=== PATIENT | male | born 1940 | race Caucasian/White ===

== ENCOUNTER → 2016-07-11 | Day surgery (SDC) | payer MEDICARE, BC ==
[~2016-07-11] VITALS: Ht 175.3 cm; Wt 83.5 kg
[~2016-07-11] MED LIST: ALEV220C2 PO; ASPI1TAB PO; BUPIVACAINE/EPIN 0.25% 30 ML VIAL As Ordered ONE; BUPIVACAINE/EPIN 0.25% 30 ML VIAL XX ONE; GLYCOPYRROLATE INJ 0.2 MG/ML 2 ML VIAL As Ordered ONE; ISTA0.5S OP; LABETALOL HCL 100 MG/20 ML VIAL IV PRN; LATA5OPD OD; LIDOCAINE 2% INJ 100 MG/5 ML SDV (FOR ANES.) As Ordered ONE; LISI10TA4 PO; LR 1,000 ML IV SCH; MIDAZOLAM INJ 2 MG/2 ML VIAL (J2250) As Ordered ONE; NEOSTIGMINE 1MG/ML 5 ML SYRINGE (J2710) As Ordered ONE; NORCO, ANEXSIA 5/325MG TABLET (HYDROcodone/ACETAMINOPHEN) PO PRN; ONDANSETRON 4MG/2ML VIAL (J2405) As Ordered ONE; ONDANSETRON 4MG/2ML VIAL (J2405) IV PRN; PERCOCET 5MG/325MG TAB PO PRN; PROPOFOL 200 MG/20 ML VIAL As Ordered ONE; RANI300T PO; ROCURONIUM BROMIDE 50 MG/5 ML VIAL As Ordered ONE; VITA500046 PO; dexameTHASONE 4 MG/ML 1ML VIAL (J1100) As Ordered ONE; fentaNYL 100 MCG/2 ML INJECTION (J3010) IV PRN; fentaNYL 250 MCG/5 ML INJECTION (J3010) As Ordered ONE; hydrALAZINE INJ 20 MG/ML VIAL As Ordered ONE
[2016-07-11] MEDS: hydrALAZINE INJ 20 MG/ML VIAL IV PRN ×3 (16:10→16:22)
[2016-07-11 16:22] VITALS: BP 176/86
--- NOTE | 2016-07-11 17:06 | ECGEPIP ---
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 No prior ECG available for comparison at the time of interpretation. Electronically Signed On 07-11-2016 16:49:37 EST by Willis Valenzuela
--- NOTE | 2016-07-11 17:06 | ECGEPIP ---
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 No significant change compared with 07/11/2016 at 1348 hrs. Electronically Signed On 07-11-2016 16:57:15 EST by Willis Valenzuela
[2016-07-11 20:15] VITALS: BP 140/80
--- NOTE | 2016-07-12 10:04 | RO ---
DATE OF PROCEDURE: 07/11/2016 PREOPERATIVE DIAGNOSIS: Right inguinal hernia. POSTOPERATIVE DIAGNOSIS: Incarcerated right inguinal hernia. OPERATIVE PROCEDURE: SURGEON: Sebastian Hall DO WEALTH MANAGEMENT CONSULTANT: Dr. Case ANESTHESIA: General: ESTIMATED BLOOD LOSS: 5 mL. COMPLICATIONS: None. INDICATIONS FOR PROCEDURE: The patient is a 76-year-old male who has had a right inguinal hernia for many years. It is starting to get bigger and cause him more pain. It pops out every time he stands up, but it reduces down to the point where it does not bother him when he lays down. Recommendation was to proceed with laparoscopic right, possible open right inguinal hernia repair. Risks and benefits of the procedure not limited but including bleeding, infection, hernia recurrence, hernia formation, damage to surrounding structures, and need for further surgery were discussed in detail with the patient. Informed consent was obtained and the procedure was planned. DESCRIPTION OF PROCEDURE: The patient brought back to operating room 8. After sufficient sedation, the abdomen was sterilely prepped and draped. A Hamilton catheter was placed. Next a time-out was done to confirm proper patient and proper procedure. Following that a 2 cm incision was made infraumbilically. The incision was carried down to the level of fascia. Fascia was opened just to the left of midline. Preperitoneal space was then entered and balloon dissector was placed. After balloon dissection, balloon dissector was removed and replaced with a 10 mm balloon port. Next, two 5 mm ports were placed in the midline in between the pubic symphysis and the umbilicus. Using blunt dissection, the hernia sac on the right was carefully identified along with the cord structures. It was encircled. The hernia sac was then carefully reduced; was very long and narrow hernia sac. Once it had been all completely reduced, it was dissected free both posteriorly and laterally. Once this was completed, a Bard 3-D Max large mesh was rolled up and placed inside the preperitoneal space. This was unrolled laterally, tacked to the midline and to the pubic symphysis using a Pro tacker. Once the mesh was laid flat it was held in place while the preperitoneal space was desufflated. Next, the ports were removed. Fascia at the umbilical port site was closed with #0 Vicryl [id number] suture. Skin incision closed for #4-0 Vicryl subcuticular sutures. The abdomen was cleaned and dried. Steri-Strips, 4x4 and tape were applied thus ending procedure.
== END | disposition home or self-care (01) ==
LOC: M SDC 13:12
PROVIDERS: ATTEND Surgery
DX: K40.30 Unilateral inguinal hernia, with obstruction, without gangrene, not specified as recurrent (principal); I10 Essential (primary) hypertension; K21.9 Gastro-esophageal reflux disease without esophagitis; M54.5 Low back pain; Z79.899 Other long term (current) drug therapy; Z87.891 Personal history of nicotine dependence
CPT/HCPCS: 49650; 93005; C1781; J0690; J1100; J2250; J2405; J2710; J3010

== ENCOUNTER → 2017-01-29 | Outpatient (CLI) | payer MEDICARE, BC ==
[~2017-01-29] MED LIST changes: -BUPIVACAINE/EPIN 0.25% 30 ML VIAL As Ordered ONE; -BUPIVACAINE/EPIN 0.25% 30 ML VIAL XX ONE; -GLYCOPYRROLATE INJ 0.2 MG/ML 2 ML VIAL As Ordered ONE; -LABETALOL HCL 100 MG/20 ML VIAL IV PRN; -LIDOCAINE 2% INJ 100 MG/5 ML SDV (FOR ANES.) As Ordered ONE; -LR 1,000 ML IV SCH; -MIDAZOLAM INJ 2 MG/2 ML VIAL (J2250) As Ordered ONE; -NEOSTIGMINE 1MG/ML 5 ML SYRINGE (J2710) As Ordered ONE; -NORCO, ANEXSIA 5/325MG TABLET (HYDROcodone/ACETAMINOPHEN) PO PRN; -ONDANSETRON 4MG/2ML VIAL (J2405) As Ordered ONE; -ONDANSETRON 4MG/2ML VIAL (J2405) IV PRN; -PERCOCET 5MG/325MG TAB PO PRN; -PROPOFOL 200 MG/20 ML VIAL As Ordered ONE; -ROCURONIUM BROMIDE 50 MG/5 ML VIAL As Ordered ONE; -dexameTHASONE 4 MG/ML 1ML VIAL (J1100) As Ordered ONE; -fentaNYL 100 MCG/2 ML INJECTION (J3010) IV PRN; -fentaNYL 250 MCG/5 ML INJECTION (J3010) As Ordered ONE; -hydrALAZINE INJ 20 MG/ML VIAL As Ordered ONE
[2017-01-29 14:16] LABS: BASO % 0.3 % (0.0-1.0); LARGE UNSTAINED CELL # 0.1 K/mm3 (0.0-0.4); LARGE UNSTAINED CELL % 2.1 % (0.0-4.0); LYMPH # 1.1 K/mm3 (1.5-4.5); MEAN CORPUSCULAR HEMOGLOBIN 28.3 pg (27.0-33.0); MEAN CORPUSCULAR VOLUME 85.7 fl (80.0-96.0); MONO # 0.4 K/mm3 (0.0-0.8); MONO % 8.6 % (0.0-5.0); NEUTROPHILS # 3.2 K/mm3 (1.8-7.7); PLATELET COUNT, AUTOMATED 223 k/mm3 (150-450); WHITE BLOOD COUNT 4.7 K/mm3 (4.0-10.0)
[2017-01-29 14:33] LABS: ALBUMIN/GLOBULIN RATIO 1.74 (1.00-1.93); ALKALINE PHOSPHATASE 47 U/L (45-117); ALT/SGPT 14 U/L (12-78); ANION GAP 10 MEQ/L (8-16); AST/SGOT 10 U/L (15-37); BLOOD UREA NITROGEN 16 MG/DL (7-18); CALCIUM LEVEL 8.9 MG/DL (8.8-10.2); CARBON DIOXIDE LEVEL 27 MEQ/L (21-32); CHLORIDE LEVEL 107 MEQ/L (98-107); CHOLESTEROL LEVEL 228 MG/DL (<200); CREATININE FOR GFR 0.97 MG/DL (0.70-1.30); GLOMERULAR FILTRATION RATE > 60.0 (>42); GLUCOSE, FASTING 108 MG/DL (83-110); POTASSIUM SERUM 4.8 MEQ/L (3.5-5.1); SODIUM LEVEL 144 MEQ/L (136-145); TOTAL PROTEIN 6.3 GM/DL (6.4-8.2); TRIGLYCERIDES LEVEL 107 MG/DL (<150)
[2017-01-29 15:17] LABS: ERYTHROCYTE SEDIMENTATION RATE 7 mm/hr (0-20)
[2017-01-31 00:08] LABS: Lyme Disease IgG/IgM Antibodie <0.91 ISR (0.00-0.90); Lyme Disease IgM Ab Quantitati <0.80 index (0.00-0.79)
== END ==
LOC: M WUC 10:01
PROVIDERS: ATTEND Emergency Medicine
DX: M25.561 Pain in right knee (principal); R73.01 Impaired fasting glucose; E55.9 Vitamin D deficiency, unspecified; I10 Essential (primary) hypertension; N40.1 Benign prostatic hyperplasia with lower urinary tract symptoms

== ENCOUNTER → 2017-02-04 | Outpatient (CLI) | payer MEDICARE, BC ==
[2017-02-04 14:25] LABS: VITAMIN B12 LEVEL 230 PG/ML
[2017-02-04 14:38] LABS: ALBUMIN 3.9 GM/DL (3.2-5.2); ALKALINE PHOSPHATASE 53 U/L (45-117); ALT/SGPT 15 U/L (12-78); ANION GAP 7 MEQ/L (8-16); AST/SGOT 9 U/L (15-37); BILIRUBIN,TOTAL 0.8 MG/DL (0.2-1.0); BLOOD UREA NITROGEN 14 MG/DL (7-18); CALCIUM LEVEL 9.1 MG/DL (8.8-10.2); CARBON DIOXIDE LEVEL 29 MEQ/L (21-32); CHLORIDE LEVEL 107 MEQ/L (98-107); CREATININE FOR GFR 0.92 MG/DL (0.70-1.30); GLOMERULAR FILTRATION RATE > 60.0 (>42); GLUCOSE, FASTING 115 MG/DL (83-110); POTASSIUM SERUM 4.3 MEQ/L (3.5-5.1); SODIUM LEVEL 143 MEQ/L (136-145); TOTAL PROTEIN 6.5 GM/DL (6.4-8.2)
[2017-02-04 14:40] LABS: FOLATE 8.1 NG/ML
[2017-02-04 18:21] LABS: BASO % 0.2 % (0.0-1.0); EOS % 0.4 % (0.0-3.0); LARGE UNSTAINED CELL # 0.1 K/mm3 (0.0-0.4); LARGE UNSTAINED CELL % 2.1 % (0.0-4.0); LYMPH # 0.7 K/mm3 (1.5-4.5); LYMPH % 16.1 % (24.0-44.0); MEAN CORPUSCULAR HEMOGLOBIN 29.2 pg (27.0-33.0); MEAN CORPUSCULAR HGB CONC 34.1 g/dl (32.0-36.5); MEAN CORPUSCULAR VOLUME 85.6 fl (80.0-96.0); MONO # 0.3 K/mm3 (0.0-0.8); MONO % 7.4 % (0.0-5.0); NEUTROPHILS # 3.3 K/mm3 (1.8-7.7); NEUTROPHILS % 73.8 % (36.0-66.0); PLATELET COUNT, AUTOMATED 234 k/mm3 (150-450); RED CELL DISTRIBUTION WIDTH 13.9 % (11.5-14.5); WHITE BLOOD COUNT 4.5 K/mm3 (4.0-10.0)
[2017-02-04 20:15] LABS: ERYTHROCYTE SEDIMENTATION RATE 8 mm/hr (0-20)
[2017-02-05 13:39] LABS: ALBUMIN 4.34 GM/DL (3.29-5.55); ALBUMIN % 66.8 % (55.8-66.1); GAMMA GLOBULIN % 9.4 % (11.1-18.8)
[2017-02-10 00:06] LABS: VITAMIN E LEVEL 11.9 mg/L (5.3-17.5)
== END ==
LOC: M WUC 10:22
PROVIDERS: ATTEND Psychiatry & Neurology Neurology
DX: G62.9 Polyneuropathy, unspecified (principal); R27.9 Unspecified lack of coordination; Z79.899 Other long term (current) drug therapy

== ENCOUNTER → 2017-09-18 | Outpatient (REF) | payer MEDICARE, BC | LOC: M LAB REF 12:17 | DX: R31.9 Hematuria, unspecified (principal) | CPT/HCPCS: 87186 ==

== ENCOUNTER → 2017-09-28 | Outpatient (REF) | payer MEDICARE, BC ==
[2017-09-28 18:55] LABS: APPEARANCE, URINE CLEAR (CLEAR); BACTERIA, URINE AUTO NEGATIVE (NEGATIVE); BILIRUBIN, URINE AUTO NEGATIVE (NEGATIVE); BLOOD, URINE BLOOD NEGATIVE (NEGATIVE); COLOR, URINE YELLOW (YELLOW); GLUCOSE, URINE (UA) AUTO NEGATIVE (NEGATIVE); KETONE, URINE AUTO NEGATIVE (NEGATIVE); LEUKOCYTE ESTERASE, URINE AUTO NEGATIVE (NEGATIVE); NITRITE, URINE AUTO NEGATIVE (NEGATIVE); PROTEIN, URINE AUTO NEGATIVE (NEGATIVE); RBC, URINE AUTO 0 /HPF (0-3); SPECIFIC GRAVITY URINE AUTO 1.013 (1.002-1.035); SQUAMOUS EPITHELIAL CELL UR AU 0 /HPF (0-6); UROBILINOGEN, URINE AUTO 0.2 mg/dL (0.0-2.0); WBC, URINE AUTO 0 /HPF (0-3)
== END ==
LOC: M SMT 16:26
DX: N39.0 Urinary tract infection, site not specified (principal)
CPT/HCPCS: 81001

== ENCOUNTER → 2018-09-22 | Outpatient (CLI) | payer MEDICARE, BC ==
[~2018-09-22] MED LIST changes: -ASPI1TAB PO; +ASPI81TA26 PO; +LATA0.0013 OD; -LATA5OPD OD
[2018-09-22 13:53] LABS: HEMOGLOBIN A1c 6.1 %
[2018-09-22 14:10] LABS: ALBUMIN 4.1 GM/DL (3.2-5.2); ALT/SGPT 8 U/L (12-78); BILIRUBIN,TOTAL 0.8 MG/DL (0.2-1.0); BLOOD UREA NITROGEN 17 MG/DL (7-18); CALCIUM LEVEL 8.8 MG/DL (8.8-10.2); CARBON DIOXIDE LEVEL 29 MEQ/L (21-32); CHLORIDE LEVEL 104 MEQ/L (98-107); CHOLESTEROL LEVEL 225 MG/DL (<200); CHOLESTEROL RISK RATIO 4.017 (<5); CREATININE FOR GFR 1.04 MG/DL (0.70-1.30); GLOMERULAR FILTRATION RATE > 60.0 (>42); GLUCOSE, FASTING 100 MG/DL (70-100); HDL CHOLESTEROL 56 MG/DL (>40); LDL CHOLESTEROL 144 MG/DL (<100); NON-HDL-C 169 MG/DL; POTASSIUM SERUM 4.3 MEQ/L (3.5-5.1); SODIUM LEVEL 138 MEQ/L (136-145); TOTAL 25(OH) VITAMIN D 37.5 NG/ML (30.0-100.0); TOTAL PROTEIN 6.2 GM/DL (6.4-8.2); TRIGLYCERIDES LEVEL 124 MG/DL (<150)
== END ==
LOC: M WUC 10:18
PROVIDERS: ATTEND Physician Assistant Medical
DX: I10 Essential (primary) hypertension (principal); R73.01 Impaired fasting glucose; E55.9 Vitamin D deficiency, unspecified

== ENCOUNTER 2018-11-15 06:15 | Day surgery (SDC) | payer MEDICARE, BC ==
[~2018-11-15] VITALS: Ht 172.7 cm; Wt 73.0 kg
[~2018-11-15 06:15] MED LIST changes: +ALEV220T22 PO; +CARB25TA9 PO; +LR 1,000 ML IV ONE; +VITA500045 PO; +XALA0.007 OU
[2018-11-15] MEDS ORDERED: BUPIVACAINE HCL 0.25% 30 ML VIAL As Ordered ONE (06:40)
[2018-11-15] MEDS ORDERED: BUPIVACAINE/EPIN 0.25% 30 ML VIAL As Ordered ONE (06:41)
[2018-11-15] MEDS ORDERED: ROCURONIUM BROMIDE 50 MG/5 ML VIAL As Ordered ONE (06:51)
[2018-11-15] MEDS ORDERED: dexameTHASONE 4 MG/ML 1ML VIAL (J1100) As Ordered ONE (06:51)
[2018-11-15] MEDS ORDERED: LIDOCAINE 2% INJ 100 MG/5 ML SDV (FOR ANES.) As Ordered ONE (06:51)
[2018-11-15] MEDS ORDERED: PROPOFOL 200 MG/20 ML VIAL As Ordered ONE (06:51)
[2018-11-15] MEDS ORDERED: ONDANSETRON 4MG/2ML VIAL (J2405) As Ordered ONE (06:52)
[2018-11-15] MEDS ORDERED: KETOROLAC 60 MG/2 ML VIAL (J1885) As Ordered ONE (06:52)
[2018-11-15] MEDS ORDERED: MIDAZOLAM INJ 2 MG/2 ML VIAL (J2250) As Ordered ONE (06:56)
[2018-11-15] MEDS ORDERED: fentaNYL 250 MCG/5 ML INJECTION (J3010) As Ordered ONE (06:56)
[2018-11-15] MEDS ORDERED: KETAMINE HCL 200 MG/20 ML VIAL As Ordered ONE (08:12)
[2018-11-15] MEDS ORDERED: SUCCINYLCHOLINE 100 MG/5 ML SYRINGE (J0330) As Ordered ONE (08:19)
[2018-11-15] MEDS ORDERED: SUGAMMADEX SODIUM 500 MG/5 ML VIAL (BRIDION) As Ordered ONE (08:34)
[2018-11-15] MEDS ORDERED: ONDANSETRON 4MG/2ML VIAL (J2405) IV PRN (09:30)
[2018-11-15] MEDS ORDERED: PERCOCET 5MG/325MG TAB PO PRN (09:30)
[2018-11-15] MEDS ORDERED: LR 1,000 ML IV SCH (09:30)
[2018-11-15] MEDS ORDERED: NORCO, ANEXSIA 5/325MG TABLET (HYDROcodone/ACETAMINOPHEN) PO PRN (09:30)
[2018-11-15] MEDS ORDERED: MEPERIDINE INJ 25 MG/ML VIAL (J2175) IV PRN (09:30)
[2018-11-15] MEDS ORDERED: fentaNYL 100 MCG/2 ML INJECTION (J3010) IV PRN (09:30)
[2018-11-15] MEDS ORDERED: METOCLOPRAMIDE INJ 10MG/2ML VIAL (J2765) IV PRN (09:30)
--- NOTE | 2018-11-15 09:39 | RO ---
DATE OF PROCEDURE: 11/15/2018 PREOPERATIVE DIAGNOSIS: Left inguinal hernia. POSTOPERATIVE DIAGNOSIS: Left inguinal hernia. PROCEDURE: Robotic left inguinal repair. SURGEON: Dr. Sebastian Hall SENIOR OPERATOR: Lily Richards ANESTHESIA: General. ESTIMATED BLOOD LOSS: 5. COMPLICATIONS: None. INDICATIONS FOR PROCEDURE: The patient is a 78-year-old male who presents with a left groin bulge and found to have a reducible left inguinal hernia. Recommendation was to proceed with robotic repair. Risks and benefits of the procedure not limited to, but including bleeding, infection, hernia formation, hernia recurrence, damage to surrounding structures, need for further surgery were discussed in detail with the patient and informed consent was obtained and the procedure was planned. DESCRIPTION OF PROCEDURE: The patient brought back to operating room seven. After sufficient sedation, the abdomen was sterilely prepped and draped. Next, a time out was done to confirm proper patient and proper procedure. Following that, a stab incision was made in the left lower quadrant and a Veress needle inserted. The abdomen was insufflated to 15 mmHg. Next, the Veress needle was removed. An 8 mm OptiVu port was used to gain access to the umbilicus. Once inside, two more 8 mm ports were placed in the left and right midabdomen. The robot was then docked to the ports. Next, from the console in the left groin there was a large obvious indirect hernia identified. The preperitoneal space was opened using cautery. The preperitoneal space was dissected free medially and laterally and then circumferentially around the hernia sac. Next, the hernia sac was carefully reduced circumferentially and all the way posteriorly away from all the cord structures. After doing so, I dissected medially some more right down onto the pubic symphysis. There was some scar tissue and a direct hernia identified there as well that were all reduced. Once this was all completed, a Bard 3DMax light medium mesh was placed in the left preperitoneal space and sutured to the pubic symphysis using a #2-0 Vicryl suture. The peritoneum was then closed with a running #2-0 V-Loc, thus completing the procedure. Once that was done, I noticed a band of tissue in the peritoneum running in between a couple of bowel loops. I was able to clip that as well. Then, the abdomen was desufflated and the ports were removed. Skin incisions were closed with #4-0 Vicryl subcuticular sutures. The abdomen was cleaned and dried. Steri-Strips, 4x4 and tape were applied, thus ending the procedure.
[2018-11-15 11:15] VITALS: BP 157/74
== END 2018-11-15 11:42 | disposition home or self-care (01) ==
LOC: M SDC 06:15
PROVIDERS: ATTEND Surgery
DX: K40.90 Unilateral inguinal hernia, without obstruction or gangrene, not specified as recurrent (principal); K21.9 Gastro-esophageal reflux disease without esophagitis; G47.30 Sleep apnea, unspecified; I10 Essential (primary) hypertension; Z79.899 Other long term (current) drug therapy
CPT/HCPCS: 49650; C1781; J0330; J0690; J1100; J1885; J2250; J2405; J3010

== ENCOUNTER → 2019-04-05 | Outpatient (CLI) | payer MEDICARE, BC ==
[~2019-04-05] MED LIST changes: -LR 1,000 ML IV ONE
[2019-04-05 11:57] LABS: BASO % 0.2 % (0.0-1.0); EOS # 0.1 10^3/uL (0.0-0.5); EOS % 1.1 % (0.0-3.0); HEMATOCRIT 41.6 % (42.0-52.0); HEMOGLOBIN 13.7 g/dl (13.5-17.5); LYMPH # 1.2 10^3/uL (1.5-5.0); LYMPH % 22.1 % (24.0-44.0); MEAN CORPUSCULAR HEMOGLOBIN 28.5 pg (27.0-33.0); MEAN CORPUSCULAR HGB CONC 32.9 g/dl (32.0-36.5); MEAN CORPUSCULAR VOLUME 86.7 fl (80.0-96.0); MONO # 0.7 10^3/uL (0.0-0.8); NEUTROPHILS # 3.5 10^3/uL (1.5-8.5); NEUTROPHILS % 63.2 % (36.0-66.0); PLATELET COUNT, AUTOMATED 260 10^3/uL (150-450); WHITE BLOOD COUNT 5.5 10^3/uL (4.0-10.0)
[2019-04-05 12:23] LABS: ALBUMIN 3.9 GM/DL (3.2-5.2); ALT/SGPT 12 U/L (12-78); BILIRUBIN,TOTAL 1.3 MG/DL (0.2-1.0); BLOOD UREA NITROGEN 16 MG/DL (7-18); CALCIUM LEVEL 8.7 MG/DL (8.8-10.2); CARBON DIOXIDE LEVEL 30 MEQ/L (21-32); CHLORIDE LEVEL 104 MEQ/L (98-107); CHOLESTEROL LEVEL 226 MG/DL (<200); CHOLESTEROL RISK RATIO 4.109 (<5); CREATININE FOR GFR 1.04 MG/DL (0.70-1.30); GLOMERULAR FILTRATION RATE > 60.0 (>42); GLUCOSE, FASTING 109 MG/DL (70-100); HDL CHOLESTEROL 55 MG/DL (>40); LDL CHOLESTEROL 145 MG/DL (<100); NON-HDL-C 171 MG/DL; POTASSIUM SERUM 4.1 MEQ/L (3.5-5.1); SODIUM LEVEL 141 MEQ/L (136-145); TOTAL 25(OH) VITAMIN D 45.7 NG/ML (30.0-100.0); TOTAL PROTEIN 6.8 GM/DL (6.4-8.2); TRIGLYCERIDES LEVEL 130 MG/DL (<150)
[2019-04-05 13:10] LABS: HEMOGLOBIN A1c 5.9 %
== END ==
LOC: M WUC 09:34
PROVIDERS: ATTEND Physician Assistant
DX: R73.01 Impaired fasting glucose (principal); I10 Essential (primary) hypertension; G20 Parkinson's disease; E55.9 Vitamin D deficiency, unspecified

== ENCOUNTER → 2019-10-11 | Outpatient (CLI) | payer MEDICARE, BC ==
[2019-10-12 09:46] LABS: APPEARANCE, URINE CLEAR (CLEAR); BACTERIA, URINE AUTO NEGATIVE (NEGATIVE); BILIRUBIN, URINE AUTO NEGATIVE (NEGATIVE); BLOOD, URINE BLOOD NEGATIVE (NEGATIVE); COLOR, URINE YELLOW (YELLOW); GLUCOSE, URINE (UA) AUTO NEGATIVE (NEGATIVE); KETONE, URINE AUTO TRACE mg/dL (NEGATIVE); LEUKOCYTE ESTERASE, URINE AUTO NEGATIVE (NEGATIVE); MUCUS, URINE SMALL (NEGATIVE); NITRITE, URINE AUTO NEGATIVE (NEGATIVE); PROTEIN, URINE AUTO NEGATIVE (NEGATIVE); RBC, URINE AUTO 1 /HPF (0-3); SPECIFIC GRAVITY URINE AUTO 1.018 (1.002-1.035); SQUAMOUS EPITHELIAL CELL UR AU 0 /HPF (0-6); WBC, URINE AUTO 0 /HPF (0-3)
[2019-10-12 09:47] LABS: BASO % 0.2 % (0.0-1.0); EOS % 0.5 % (0.0-3.0); HEMATOCRIT 40.5 % (42.0-52.0); HEMOGLOBIN 12.9 g/dl (13.5-17.5); LYMPH % 16.6 % (24.0-44.0); MEAN CORPUSCULAR HEMOGLOBIN 27.2 pg (27.0-33.0); MEAN CORPUSCULAR HGB CONC 31.9 g/dl (32.0-36.5); MEAN CORPUSCULAR VOLUME 85.4 fl (80.0-96.0); MONO # 0.7 10^3/uL (0.0-0.8); MONO % 12.1 % (0.0-5.0); NEUTROPHILS # 4.2 10^3/uL (1.5-8.5); NEUTROPHILS % 70.3 % (36.0-66.0); PLATELET COUNT, AUTOMATED 310 10^3/uL (150-450); RED BLOOD COUNT 4.74 10^6/uL (4.30-6.10)
[2019-10-12 09:53] LABS: ALBUMIN 3.7 GM/DL (3.2-5.2); ALT/SGPT < 6 U/L (12-78); BILIRUBIN,TOTAL 1.1 MG/DL (0.2-1.0); BLOOD UREA NITROGEN 17 MG/DL (7-18); CALCIUM LEVEL 8.7 MG/DL (8.8-10.2); CARBON DIOXIDE LEVEL 30 MEQ/L (21-32); CHLORIDE LEVEL 104 MEQ/L (98-107); CHOLESTEROL LEVEL 182 MG/DL (<200); CHOLESTEROL RISK RATIO 3.714 (<5); CREATININE FOR GFR 1.08 MG/DL (0.70-1.30); GLOMERULAR FILTRATION RATE > 60.0 (>42); GLUCOSE, FASTING 108 MG/DL (70-100); HDL CHOLESTEROL 49 MG/DL (>40); LDL CHOLESTEROL 117 MG/DL (<100); NON-HDL-C 133 MG/DL; POTASSIUM SERUM 4.2 MEQ/L (3.5-5.1); SODIUM LEVEL 141 MEQ/L (136-145); TOTAL PROTEIN 6.5 GM/DL (6.4-8.2); TRIGLYCERIDES LEVEL 82 MG/DL (<150)
[2019-10-12 09:59] LABS: TOTAL 25(OH) VITAMIN D 53.2 NG/ML (30.0-100.0)
[2019-10-12 10:21] LABS: HEMOGLOBIN A1c 5.7 %
== END ==
LOC: M WUC 11:03
PROVIDERS: ATTEND Physician Assistant
DX: I10 Essential (primary) hypertension (principal); R73.01 Impaired fasting glucose; E55.9 Vitamin D deficiency, unspecified; E78.2 Mixed hyperlipidemia; G20 Parkinson's disease; R35.0 Frequency of micturition

== ENCOUNTER → 2020-08-09 | Outpatient (CLI) | payer MEDICARE, BC ==
[~2020-08-09] MED LIST changes: +LISI10TA22 PO; -LISI10TA4 PO
--- NOTE | 2020-08-09 14:03 | REP ---
INDICATION: PAIN. COMPARISON: None. TECHNIQUE: Three views right shoulder. FINDINGS: There is no acute fracture or dislocation. Hypertrophic changes seen at the distal end of the clavicle. There is an adjacent oval smoothly marginated calcific density measuring 12 x 4 mm. This could represent an old fracture. There is mild acromial spurring. The humeral head is high riding suggesting a rotator cuff tear. There is mild narrowing and spurring at the glenohumeral joint. IMPRESSION: There is no acute fracture or dislocation. Hypertrophic changes seen at the distal end of the clavicle. There is an adjacent oval smoothly marginated calcific density measuring 12 x 4 mm. This could represent an old fracture. There is mild acromial spurring. The humeral head is high riding suggesting a rotator cuff tear. There is mild narrowing and spurring at the glenohumeral joint. <Electronically signed by Sebastian Rocha > 08/09/20 [id number]
== END ==
LOC: M WUC 13:16
PROVIDERS: ATTEND Physician Assistant
DX: M25.511 Pain in right shoulder (principal)

== ENCOUNTER 2021-06-23 16:10 | Inpatient (IN) | payer MEDICARE, BC ==
[~2021-06-23] VITALS: Ht 165.1 cm; Wt 50.2 kg
[~2021-06-23 16:10] MED LIST changes: -ISTA0.5S OP; +ISTA0.5S OU
[2021-06-23] MEDS ORDERED: LIDOCAINE 2% 5ML JELLY UROJET TOP ONE (16:20)
[2021-06-23] MEDS ORDERED: ONDANSETRON 4MG/2ML VIAL IV ONE (16:25)
[2021-06-23] MEDS: NS 1,000 ML IV ONE ×2 (16:48→17:35)
[2021-06-23] MEDS ORDERED: ACETAMINOPHEN TAB 650MG DOSE (2X325MG) PO ONE (17:05)
[2021-06-23 17:15] LABS: BLOOD UREA NITROGEN 19 MG/DL (7-18); CALCIUM LEVEL 7.9 MG/DL (8.8-10.2); CARBON DIOXIDE LEVEL 26 MEQ/L (21-32); CHLORIDE LEVEL 102 MEQ/L (98-107); CREATININE FOR GFR 0.92 MG/DL (0.70-1.30); GLOMERULAR FILTRATION RATE > 60.0 (>42); GLUCOSE, FASTING 97 MG/DL (70-100); POTASSIUM SERUM 4.2 MEQ/L (3.5-5.1); SODIUM LEVEL 136 MEQ/L (136-145)
[2021-06-23 17:20] LABS: HEMATOCRIT 29.3 % (42.0-52.0); HEMOGLOBIN 9.6 g/dl (13.5-17.5); MEAN CORPUSCULAR HEMOGLOBIN 27.5 pg (27.0-33.0); MEAN CORPUSCULAR HGB CONC 32.8 g/dl (32.0-36.5); PLATELET COUNT, AUTOMATED 177 10^3/uL (150-450); RED BLOOD COUNT 3.49 10^6/uL (4.30-6.10); WHITE BLOOD COUNT 3.2 10^3/uL (4.0-10.0)
[2021-06-23] MEDS ORDERED: NS IV ONE (17:30)
[2021-06-23] MEDS ORDERED: CEFEPIME HCL 2 GM in D5W MINI-BAG PLUS 50 ML IV ONE (17:30)
[2021-06-23] MEDS ORDERED: ACETAMINOPHEN 650 MG SUPP PR ONE (17:45)
[2021-06-23 18:08] LABS: LYMPHOCYTES 3 % (16-44); NEUTROPHILS 82 % (28-66); PLATELET ESTIMATE NORMAL (NORMAL)
[2021-06-23] MEDS ORDERED: CARB25TA18 PO (18:28)
[2021-06-23] MEDS ORDERED: FERR325T19 PO (18:28)
[2021-06-23] MEDS ORDERED: ERGO500029 PO (18:28)
[2021-06-23] MEDS ORDERED: HOME MED LIST COMPLETE! XX SCH (18:35)
[2021-06-23] MEDS ORDERED: LIDOCAINE 2% 100MG/5ML SDV (FOR ANES.) As Ordered ONE (20:00)
[2021-06-23] MEDS ORDERED: fentaNYL 100 MCG/2 ML INJECTION As Ordered ONE (20:00)
[2021-06-23] MEDS ORDERED: propofoL 200 MG/20 ML VIAL As Ordered ONE (20:00)
[2021-06-23] MEDS ORDERED: MIDAZOLAM INJ 2MG/2ML VIAL (J2250 PER 1MG) As Ordered ONE (20:00)
[2021-06-23] MEDS ORDERED: ONDANSETRON 4MG/2ML VIAL As Ordered ONE (20:00)
[2021-06-23] MEDS ORDERED: ceFAZolin 2 GM/D5W 50 ML IV BAG (J0690 PER 500MG) As Ordered ONE (20:35)
[2021-06-23] MEDS ORDERED: oxyCODONE 5MG TAB PO PRN (21:00)
[2021-06-23] MEDS ORDERED: fentaNYL 100 MCG/2 ML INJECTION IV PRN (21:00)
[2021-06-23] MEDS: SINEMET 25-100 MG TAB PO SCH (21:00)
[2021-06-23] MEDS ORDERED: LR 1,000 ML IV SCH (21:00)
[2021-06-23] MEDS ORDERED: ONDANSETRON 4MG/2ML VIAL IV PRN (21:00)
[2021-06-23] MEDS: LATANOPROST 0.005% OPHTH SOLN 2.5 ML OU SCH (21:00)
[2021-06-23 22:15] VITALS: BP 98/56
[2021-06-23 22:45] VITALS: BP 97/57
[2021-06-23] MEDS: PIPERACILLIN/TAZOBACTAM SOD 3.375 GM in D5W MINI-BAG PLUS 50 ML IV SCH (22:46)
[2021-06-23] MEDS: NS 1,000 ML IV SCH (22:46)
[2021-06-23 23:45] VITALS: BP 103/58
[2021-06-24 00:45] VITALS: BP 100/59
[2021-06-24] MEDS ORDERED: MORPHINE 2 MG/ML 1ML VIAL (J2270) IV PRN (00:55)
[2021-06-24] MEDS: SINEMET 25-100 MG TAB PO SCH ×4 (01:13→20:41)
[2021-06-24 01:45] VITALS: BP 98/57
[2021-06-24 02:45] VITALS: BP 98/57
[2021-06-24] MEDS: NS 1,000 ML IV SCH ×2 (05:52→08:58)
[2021-06-24] MEDS: PIPERACILLIN/TAZOBACTAM SOD 3.375 GM in D5W MINI-BAG PLUS 50 ML IV SCH ×4 (05:52→20:42)
[2021-06-24 06:00] VITALS: BP 93/55
[2021-06-24] MEDS ORDERED: NS 500 ML IV ONE (06:45)
[2021-06-24 07:25] LABS: HEMATOCRIT 27.6 % (42.0-52.0); HEMOGLOBIN 8.7 g/dl (13.5-17.5); MEAN CORPUSCULAR HEMOGLOBIN 27.8 pg (27.0-33.0); MEAN CORPUSCULAR HGB CONC 31.5 g/dl (32.0-36.5); MEAN CORPUSCULAR VOLUME 88.2 fl (80.0-96.0); PLATELET COUNT, AUTOMATED 121 10^3/uL (150-450); RED BLOOD COUNT 3.13 10^6/uL (4.30-6.10); WHITE BLOOD COUNT 12.9 10^3/uL (4.0-10.0)
[2021-06-24] MEDS: PERCOCET 5MG/325MG TAB PO PRN (08:18)
[2021-06-24] MEDS: NS 0.45% 1,000 ML IV SCH ×2 (11:05→20:25)
[2021-06-24 11:13] LABS: BLOOD UREA NITROGEN 22 MG/DL (7-18); CALCIUM LEVEL 7.3 MG/DL (8.8-10.2); CARBON DIOXIDE LEVEL 22 MEQ/L (21-32); CHLORIDE LEVEL 109 MEQ/L (98-107); CREATININE FOR GFR 0.82 MG/DL (0.70-1.30); GLOMERULAR FILTRATION RATE > 60.0 (>42); GLUCOSE, FASTING 44 MG/DL (70-100); POTASSIUM SERUM 3.7 MEQ/L (3.5-5.1); SODIUM LEVEL 141 MEQ/L (136-145)
[2021-06-24 14:13] VITALS: BP 91/55
[2021-06-24] MEDS: LATANOPROST 0.005% OPHTH SOLN 2.5 ML OU SCH (20:42)
[2021-06-24 21:06] VITALS: BP 80/52
[2021-06-25 01:44] VITALS: BP 73/45
[2021-06-25] MEDS: PIPERACILLIN/TAZOBACTAM SOD 3.375 GM in D5W MINI-BAG PLUS 50 ML IV SCH ×4 (04:22→21:04)
[2021-06-25 05:50] LABS: HEMATOCRIT 28.7 % (42.0-52.0); HEMOGLOBIN 9.3 g/dl (13.5-17.5); MEAN CORPUSCULAR HEMOGLOBIN 27.5 pg (27.0-33.0); MEAN CORPUSCULAR HGB CONC 32.4 g/dl (32.0-36.5); MEAN CORPUSCULAR VOLUME 84.9 fl (80.0-96.0); RED BLOOD COUNT 3.38 10^6/uL (4.30-6.10)
[2021-06-25 06:54] LABS: PLATELET COUNT, AUTOMATED 98 10^3/uL (150-450)
[2021-06-25 07:40] LABS: BLOOD UREA NITROGEN 31 MG/DL (7-18); CALCIUM LEVEL 7.4 MG/DL (8.8-10.2); CARBON DIOXIDE LEVEL 20 MEQ/L (21-32); CHLORIDE LEVEL 106 MEQ/L (98-107); CREATININE FOR GFR 0.88 MG/DL (0.70-1.30); GLOMERULAR FILTRATION RATE > 60.0 (>42); GLUCOSE, FASTING 35 MG/DL (70-100); POTASSIUM SERUM 3.8 MEQ/L (3.5-5.1); SODIUM LEVEL 135 MEQ/L (136-145)
[2021-06-25 08:20] VITALS: BP 107/64
[2021-06-25] MEDS ORDERED: GLUCOSE 4GM CHEW TABLET PO PRN (08:40)
[2021-06-25] MEDS ORDERED: DEXTROSE 50% 50 ML SYRINGE IV PRN (08:40)
[2021-06-25] MEDS ORDERED: GLUCAGON INJ 1MG VIAL SC PRN (08:40)
[2021-06-25] MEDS: NS 0.45% 1,000 ML IV SCH ×2 (09:07→17:00)
[2021-06-25] MEDS: SINEMET 25-100 MG TAB PO SCH ×3 (09:08→21:04)
[2021-06-25 12:20] VITALS: BP 100/62
[2021-06-25 14:00] VITALS: BP 113/62
[2021-06-25] MEDS: PERCOCET 5MG/325MG TAB PO PRN (17:01)
[2021-06-25 17:43] LABS: MAGNESIUM LEVEL 1.7 MG/DL (1.7-2.2)
[2021-06-25] MEDS: LATANOPROST 0.005% OPHTH SOLN 2.5 ML OU SCH (21:04)
[2021-06-25 22:00] VITALS: BP 109/53
[2021-06-26 03:00] VITALS: BP 116/54
[2021-06-26] MEDS: NS 0.45% 1,000 ML IV SCH (04:09)
[2021-06-26] MEDS: PIPERACILLIN/TAZOBACTAM SOD 3.375 GM in D5W MINI-BAG PLUS 50 ML IV SCH ×2 (04:10→08:51)
[2021-06-26 05:57] LABS: HEMATOCRIT 30.5 % (42.0-52.0); HEMOGLOBIN 10.1 g/dl (13.5-17.5); MEAN CORPUSCULAR HEMOGLOBIN 27.5 pg (27.0-33.0); MEAN CORPUSCULAR HGB CONC 33.1 g/dl (32.0-36.5); MEAN CORPUSCULAR VOLUME 83.1 fl (80.0-96.0); RED BLOOD COUNT 3.67 10^6/uL (4.30-6.10); WHITE BLOOD COUNT 16.5 10^3/uL (4.0-10.0)
[2021-06-26 05:58] LABS: PLATELET COUNT, AUTOMATED 71 10^3/uL (150-450)
[2021-06-26 06:00] VITALS: BP 117/59
[2021-06-26 06:24] LABS: BLOOD UREA NITROGEN 30 MG/DL (7-18); CALCIUM LEVEL 7.6 MG/DL (8.8-10.2); CARBON DIOXIDE LEVEL 22 MEQ/L (21-32); CHLORIDE LEVEL 106 MEQ/L (98-107); CREATININE FOR GFR 0.86 MG/DL (0.70-1.30); GLOMERULAR FILTRATION RATE > 60.0 (>42); GLUCOSE, FASTING 91 MG/DL (70-100); SODIUM LEVEL 135 MEQ/L (136-145)
[2021-06-26] MEDS ORDERED: POTASSIUM CHLORIDE 10MEQ SR TABLET PO ONE (07:25)
[2021-06-26] MEDS: SINEMET 25-100 MG TAB PO SCH (08:51)
[2021-06-26] MEDS: PERCOCET 5MG/325MG TAB PO PRN (11:19)
[2021-06-26 12:10] VITALS: BP 122/66
[2021-06-26] MEDS ORDERED: LEVO750T14 PO (12:17)
[2021-06-26 17:18] LABS: MAGNESIUM LEVEL 1.8 MG/DL (1.7-2.2)
== END 2021-06-26 15:40 | disposition home health service (06) | DRG 871 ==
LOC: EDBD 16:10 → M ED 16:10 → EEVIPCON 18:34 → M ED INP 18:34 → ENRESERV 19:10 → M MS5PR 22:05
PROVIDERS: ADMIT Family Medicine; ATTEND Internal Medicine
PROC: 0T9B80Z Drainage of Bladder with Drainage Device, Via Natural or Artificial Opening Endoscopic (ICD-10-PCS; principal; 2021-06-23 20:30)
DX: A41.9 Sepsis, unspecified organism (principal); G93.41 Metabolic encephalopathy; N39.0 Urinary tract infection, site not specified; S37.33XA Laceration of urethra, initial encounter; Z66 Do not resuscitate; G35 Multiple sclerosis; K21.9 Gastro-esophageal reflux disease without esophagitis; M19.90 Unspecified osteoarthritis, unspecified site; I10 Essential (primary) hypertension; Z79.899 Other long term (current) drug therapy; E55.9 Vitamin D deficiency, unspecified; R33.9 Retention of urine, unspecified; Z20.822 Contact with and (suspected) exposure to COVID-19